=== PATIENT | female | born 1965 | race Caucasian/White ===

== ENCOUNTER → 2017-02-14 13:08 | Emergency (ER) | payer SELFPAY ==
[~2017-02-14 13:08] MED LIST: Acetaminophen TAB* 325 MG PO ONE; Ibuprofen TAB* 800 MG PO ONE
--- NOTE | 2017-02-14 14:15 | RAD ---
HISTORY: Left elbow trauma COMPARISONS: None VIEWS: 4, Frontal, lateral, and oblique views of the left elbow FINDINGS: BONE DENSITY: Normal. BONES: There is no displaced fracture of the articular surface of the radial head. JOINTS: There is a small joint effusion. ALIGNMENT: There is no dislocation. SOFT TISSUES: Unremarkable. OTHER FINDINGS: None. IMPRESSION: NONDISPLACED RADIAL HEAD FRACTURE
[2017-02-14 15:27] VITALS: BP 134/69
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
== END | disposition home or self-care (01) ==
LOC: ED 13:08
DX: S52.125A Nondisplaced fracture of head of left radius, initial encounter for closed fracture (principal); V54.5XXA Driver of pick-up truck or van injured in collision with heavy transport vehicle or bus in traffic accident, initial encounter; Y92.9 Unspecified place or not applicable; Z88.0 Allergy status to penicillin; Z88.2 Allergy status to sulfonamides
CPT/HCPCS: 29125; 99282; A9270-GY